=== PATIENT | female | born 1960 | race Caucasian/White ===

== ENCOUNTER 2018-03-29 16:49 | Emergency (ER) | payer BC, OTHER ==
[2018-03-29] MEDS ORDERED: SODIUM CHLORIDE 0.9% 1,000 ML IV STA (17:20)
--- NOTE | 2018-03-29 17:24 | ED ---
Abdominal Pain HPI - General Source: patient, RN notes reviewed Mode of arrival: ambulatory Limitations: no limitations <Sandra Tong - Last Filed: 03/29/18 20:32> <Curtis Rainey - Last Filed: 04/02/18 15:27> - General Chief Complaint: Abdominal Pain Stated Complaint: Abd Pain Time Seen by Provider: 03/29/18 17:05 - History of Present Illness Initial Comments: This is a 57-year-old female with history of diverticulitis who presents to the emergency department with chief complaint of abdominal pain. Patient states that yesterday she developed lower abdominal cramping. She states that she has had nausea but denies vomiting. Denies fevers or chills. She states she has not eaten anything today. She also complains of constipation, stating that she has not had a normal bowel movement 3-4 days. She states that 2 days ago she took a stool softener and took 2 more stool softeners today. She states she has yet to have a normal bowel movement. Patient denies any chest pain or shortness of breath, dysuria or hematuria, headache or dizziness. (Sandra Tong) - Related Data Home Medications Medication Instructions Recorded Confirmed Fluticasone Nasal [place] [Flonase 2 spr EA NOSTRIL DAILY PRN 03/29/18 03/29/18 Nasal [place]] Multivitamins, Thera [Multivitamin 1 tab PO DAILY 03/29/18 03/29/18 (formulary)] Zinc 50 mg PO DAILY 03/29/18 03/29/18 Previous Rx's Medication Instructions Recorded Ciprofloxacin HCl 500 mg PO BID 7 Days #14 tab 03/29/18 metroNIDAZOLE [Flagyl] 500 mg PO TID #21 tab 03/29/18 Allergies Allergy/AdvReac Type Severity Reaction Status Date / Time No Known Allergies Allergy Verified 03/29/18 17:22 Review of Systems ROS Other: All systems not noted in ROS Statement are negative. <Sandra Tong - Last Filed: 03/29/18 20:32> ROS Other: All systems not noted in ROS Statement are negative. <Curtis Rainey - Last Filed: 04/02/18 15:27> ROS Statement: Those systems with pertinent positive or pertinent negative responses have been documented in the HPI. Past Medical History Additional Past Medical History / Comment(s): diverticulitis History of Any Multi-Drug Resistant Organisms: None Reported Past Surgical History: No Surgical Hx Reported Past Psychological History: No Psychological Hx Reported Smoking Status: Never smoker Past Alcohol Use History: Occasional Past Drug Use History: None Reported <Sandra Tong - Last Filed: 03/29/18 20:32> General Exam Limitations: no limitations <Sandra Tong - Last Filed: 03/29/18 20:32> <Curtis Rainey - Last Filed: 04/02/18 15:27> - General Exam Comments Initial Comments: General: Awake and alert, well-developed; in no apparent distress. HEENT: Head atraumatic, normocephalic. Pupils are equal, round and reactive to light. Extraocular movements intact. Oropharynx moist without erythema or exudate. Neck: Supple. Normal ROM. Cardiovascular: Regular rate and rhythm. No murmurs, rubs or gallops. Chest symmetrical. Respiratory: Lungs clear to auscultation bilaterally. No wheezes, rales or rhonchi. Normal respiratory effort with no use of accessory muscles. Abdomen: Soft, non-distended. Mild tenderness on palpation of lower abdomen. No rigidity, rebound or guarding. Normal bowel sounds in all 4 quadrants. Musculoskeletal: Normal ROM, no tenderness bilateral upper and lower extremities. Ambulating normally. Skin: [place], warm and dry without rashes or lesions. Neurological: Alert and oriented x3. CN II-XII grossly intact. Speech is fluent and answers are appropriate. No focal neuro deficits. Psychiatric: Normal mood and affect. No overt signs of depression or anxiety noted. (Sandra Tong) Vital Signs 03/29/18 03/29/18 17:01 21:09 Temperature 98.0 F 97.9 F Pulse Rate 80 68 Respiratory 18 16 Rate Blood Pressure 162/90 146/71 O2 Sat by Pulse 100 98 Oximetry Medical Decision Making - Lab Data Result diagrams: 03/29/18 17:34 03/29/18 17:34 - Radiology Data Radiology results: report reviewed, image reviewed <Sandra Tong - Last Filed: 03/29/18 20:32> - Lab Data Result diagrams: 03/29/18 17:34 03/29/18 17:34 <Curtis Rainey - Last Filed: 04/02/18 15:27> - Medical Decision Making This is a 57-year-old female who presents to the emergency department with chief complaint of lower abdominal pain. Patient complains of lower abdominal cramping for the past one day. She states that she has a history of diverticulitis and that this feels like her previous episodes. Patient also complains of constipation. She states that she has not had a normal bowel movement in 3-4 days but has been taking stool softeners. Patient does state that she had a bowel movement while in the emergency department. Vital signs are stable and patient is afebrile. On physical examination, there is mild tenderness to palpation of the lower abdomen. Computed tomography scan of the abdomen and pelvis revealed evidence for sigmoid colon wall thickening and inflammatory changes. This is consistent with diverticulitis. Patient will be started on Cipro and Flagyl for diverticulitis. Strict return parameters were discussed with patient including fevers or chills, nausea or vomiting or increase in her abdominal pain. Vital signs are stable and patient is in no acute distress. She will be discharged home at this time. All questions answered. (Sandra Tong) Resident/PA attestation: I, Dr. Curtis Rainey, personally saw and examined the patient. I have reviewed and agree with the resident/PA findings, including all diagnostic interpretations and treatment plans as written unless otherwise stated. I was present for the spicer portions of any procedures performed and inclusive time noted for any critical care statement. (Curtis Rainey) - Lab Data Lab Results 03/29/18 03/29/18 03/29/18 Range/Units 17:34 17:34 17:34 WBC 14.6 H (3.8-10.6) k/uL RBC 4.64 (3.80-5.40) m/uL Hgb 14.0 (11.4-16.0) gm/dL Hct 41.9 (34.0-46.0) % MCV 90.2 (80.0-100.0) fL MCH 30.2 (25.0-35.0) pg MCHC 33.5 (31.0-37.0) g/dL RDW 12.3 (11.5-15.5) % Plt Count 304 (150-450) k/uL Neutrophils % 87 % Lymphocytes % 6 % Monocytes % 5 % Eosinophils % 1 % Basophils % 0 % Neutrophils # 12.7 H (1.3-7.7) k/uL Lymphocytes # 0.9 L (1.0-4.8) k/uL Monocytes # 0.8 (0-1.0) k/uL Eosinophils # 0.2 (0-0.7) k/uL Basophils # 0.0 (0-0.2) k/uL Sodium 135 L (137-145) mmol/L Potassium 3.3 L (3.5-5.1) mmol/L Chloride 93 L (98-107) mmol/L Carbon Dioxide 25 (22-30) mmol/L Anion Gap 17 mmol/L BUN 8 (7-17) mg/dL Creatinine 0.51 L (0.52-1.04) mg/dL Est GFR (CKD-EPI)AfAm >90 (>60 ml/min/1.73 sqM) Est GFR (CKD-EPI)NonAf >90 (>60 ml/min/1.73 sqM) Glucose 100 H (74-99) mg/dL Calcium 9.4 (8.4-10.2) mg/dL Total Bilirubin 2.5 H (0.2-1.3) mg/dL AST 27 (14-36) U/L ALT 28 (9-52) U/L Alkaline Phosphatase 77 (38-126) U/L Total Protein 7.7 (6.3-8.2) g/dL Albumin 5.1 H (3.5-5.0) g/dL Amylase 76 (30-110) U/L Lipase 108 (23-300) U/L Urine Color Light Yellow Urine Appearance Clear (Clear) Urine pH 6.0 (5.0-8.0) Ur Specific [place] 1.007 (1.001-1.035) Urine Protein Negative (Negative) Urine Glucose (UA) Negative (Negative) Urine Ketones 2+ H (Negative) Urine Blood Negative (Negative) Urine Nitrite Negative (Negative) Urine Bilirubin Negative (Negative) Urine Urobilinogen <2.0 (<2.0) mg/dL Ur Leukocyte Esterase Negative (Negative) - Radiology Data CT abdomen and pelvis with contrast impression: There is sigmoid colon wall thickening and surrounding inflammatory changes consistent with diverticulitis or colitis. Mild free fluid in the pelvis. This fluid I do not think is a peridiverticular abscess. Hepatic and renal cysts. (Sandra Tong) Disposition Is patient prescribed a controlled substance at d/c from ED?: No Time of Disposition: 20:47 <Sandra Tong - Last Filed: 03/29/18 20:32> <Curtis Rainey - Last Filed: 04/02/18 15:27> Clinical Impression: Diverticulitis Disposition: HOME SELF-CARE Condition: Good Instructions: Diverticulitis (ED) Additional Instructions: Please take medications as prescribed. Please follow up with primary care provider within 1-2 days. Please return to the emergency department if you develop any fevers or chills, nausea or vomiting or increase in abdominal pain. Return to emergency department if symptoms should worsen or any concerns arise. Prescriptions: Ciprofloxacin HCl 500 mg PO BID 7 Days #14 tab metroNIDAZOLE [Flagyl] 500 mg PO TID #21 tab Referrals: Enriqueta Reyez MD [Primary Care Provider] - 1-2 days
[2018-03-29] MEDS ORDERED: KETOROLAC 30 MG/ML 1 ML VIAL IVP STA ×2 (17:40→20:14)
[2018-03-29 17:49] LABS: Appearance,Urine Clear (Clear); Basophils % (A) 0 %; Bilirubin,Urine Negative (Negative); Blood,Urine Negative (Negative); Color,Urine Light Yellow; Eosinophils # (A) 0.2 k/uL (0-0.7); Eosinophils % (A) 1 %; Glucose,Urine (UA) Negative (Negative); HCT 41.9 % (34.0-46.0); Ketones,Urine 2+ (Negative); Leukocyte Esterase,Urine Negative (Negative); Lymphocytes # (A) 0.9 k/uL (1.0-4.8); Lymphocytes % (A) 6 %; MCH 30.2 pg (25.0-35.0); MCHC 33.5 g/dL (31.0-37.0); MCV 90.2 fL (80.0-100.0); Mean Platelet Volume 6.8; Monocytes # (A) 0.8 k/uL (0-1.0); Monocytes % (A) 5 %; Neutrophils # (A) 12.7 k/uL (1.3-7.7); Neutrophils % (A) 87 %; Nitrite,Urine Negative (Negative); Platelet Count 304 k/uL (150-450); Protein,Urine Negative (Negative); RBC 4.64 m/uL (3.80-5.40); RDW 12.3 % (11.5-15.5); Specific Gravity,Urine 1.007 (1.001-1.035); Urobilinogen,Urine <2.0 mg/dL (<2.0); WBC 14.6 k/uL (3.8-10.6)
[2018-03-29 17:55] LABS: ALT 28 U/L (9-52); AST 27 U/L (14-36); Albumin 5.1 g/dL (3.5-5.0); Alkaline Phosphatase 77 U/L (38-126); Amylase 76 U/L (30-110); Anion Gap 17 mmol/L; Blood Urea Nitrogen 8 mg/dL (7-17); Calcium 9.4 mg/dL (8.4-10.2); Carbon Dioxide 25 mmol/L (22-30); Chloride 93 mmol/L (98-107); Glucose 100 mg/dL (74-99); Lipase 108 U/L (23-300); Potassium 3.3 mmol/L (3.5-5.1); Sodium 135 mmol/L (137-145); Total Bilirubin 2.5 mg/dL (0.2-1.3); Total Protein 7.7 g/dL (6.3-8.2)
[2018-03-29] MEDS ORDERED: POTASSIUM BICARBONATE/CIT AC 20 MEQ TABLET.EFF PO ONE (18:09)
--- NOTE | 2018-03-29 19:56 | CT ---
EXAMINATION TYPE: CT abdomen pelvis w con DATE OF EXAM: 03/29/2018 COMPARISON: None HISTORY: Lower abdominal pain. CT DLP: 963 mGycm Automated exposure control for dose reduction was used. TECHNIQUE: Helical acquisition of images was performed from the lung bases through the pelvis. CONTRAST: Performed without Oral Contrast and with IV Contrast, patient injected with 100ml mL of Isovue M300. FINDINGS: Lung bases are clear of consolidation. There is no pleural effusion. There are multiple hepatic cysts that measure up to 2 cm. Bile ducts are not dilated. Gallbladder appears normal. Spleen appears norm al. There is no pancreatic mass. There is no adrenal mass. Kidneys show satisfactory contrast opacification. There is no hydronephrosi s. There is a 1 cm cortical cyst on the upper pole right kidney. Ureters are not dilated. There is no retroperitoneal adenopathy. There are numerous diverticula in the sigmoid colon. There is some fat stranding around the distal si gmoid colon. There is a small amount of free fluid in the pelvis. Bladder distends smoothly. Uterus i s anteverted. Lumbar spine appears intact. Appendix is not definitely seen. There is no sign of appen dicitis. IMPRESSION: THERE IS SIGMOID COLON WALL THICKENING AND SURROUNDING INFLAMMATORY CHANGES CONSISTENT WITH DIVERTICU LITIS OR COLITIS. MILD FREE FLUID IN THE PELVIS. THIS FLUID I DO NOT THINK IS A PERIDIVERTICULAR ABSC ESS. HEPATIC AND RENAL CYSTS.
[2018-03-29] MEDS ORDERED: CIPROFLOXACIN HCL 500 MG TAB PO STA (20:44)
[2018-03-29] MEDS ORDERED: metroNIDAZOLE 500 MG TAB PO STA (20:44)
[2018-03-29 21:10] VITALS: BP 146/71; PULSE 68; RESP 16; TEMP 97.9
== END 2018-03-29 21:10 | disposition home or self-care (01) ==
LOC: EC 16:49
DX: K57.92 Diverticulitis of intestine, part unspecified, without perforation or abscess without bleeding (principal); Z79.899 Other long term (current) drug therapy
CPT/HCPCS: 36415; 80053; 82150; 83690; 85025; 81003; 74177; 99284; 96374; 96376; 96361; J1885; Q9967